=== PATIENT | female | born 1980 | race Caucasian/White ===

== ENCOUNTER 2019-11-26 15:11 | Emergency (ER) | payer OTHER ==
[~2019-11-26] VITALS: Ht 160 cm; Wt 72.6 kg
[2019-11-26] MEDS ORDERED: LEVO-T100 MCG PO (15:46)
[2019-11-26] MEDS ORDERED: SLOW FE142 MG PO (15:46)
[2019-11-26 17:38] VITALS: BP 107/70
== END 2019-11-26 17:39 | disposition home or self-care (01) ==
LOC: ER 15:11
DX: S00.01XA Abrasion of scalp, initial encounter (principal); S50.311A Abrasion of right elbow, initial encounter; E03.9 Hypothyroidism, unspecified; Z79.899 Other long term (current) drug therapy; Z88.2 Allergy status to sulfonamides; Z88.8 Allergy status to other drugs, medicaments and biological substances; Z87.891 Personal history of nicotine dependence; W17.89XA Other fall from one level to another, initial encounter; Y93.89 Activity, other specified; Y92.89 Other specified places as the place of occurrence of the external cause; Y99.8 Other external cause status